=== PATIENT | male | born 1980 | race Hispanic/Latino ===

== ENCOUNTER 2025-05-18 07:18 | Emergency (ER) | payer BC, OTHER ==
[~2025-05-18] VITALS: Ht 172.7 cm; Wt 115.7 kg
[~2025-05-18 07:18] MED LIST: LEVO-70 PO; METR-172 PO
[2025-05-18 07:48] LABS: IMMATURE GRANULOCYTE ABSOLUTE 0.06 K/uL (0-1); NUCLEATED RED BLOOD CELLS 0.0 % (0.0-0.19); PLATELET COUNT (AUTO) 249 K/uL (130-400); RED BLOOD CELL COUNT(AUTO) 5.56 MIL/uL (4.50-6.20); RED CELL DISTRIBUTION WIDTH 13.0 % (11.0-15.5); WHITE BLOOD COUNT (AUTO) 10.6 K/uL (4.8-10.8)
[2025-05-18] MEDS: 0.9%NACL 1000ML 1,000 ML IV ONE (08:16)
[2025-05-18 08:22] LABS: ASPARTATE AMINOTRANSFERASE 17.0 U/L (10-37); CREATININE 1.0 mg/dL (0.5-1.3); GLOMERULAR FILTR. RATE CALC 96.0 mL/min (>90); GLUCOSE,RANDOM 117.0 mg/dL (70-105); SODIUM SERUM 140.0 mmol/L (136-145); TOTAL PROTEIN, SERUM 8.0 g/dL (6.0-8.3); UREA NITROGEN, BLOOD 11.0 mg/dL (7-18)
--- NOTE | 2025-05-18 10:52 | ERN ---
ED Note History of Present Illness Stated Complaint: LLQ PAIN Chief Complaint: Abdominal Pain Time Seen by MD: 07:42 Dictation: 44-year-old male presenting to the emergency department for left lower quadrant pain, patient reports pain over the past few days and had colonoscopy yesterday in the outpatient setting. Patient denies any chest pain, fever or bleeding Allergies: Coded Allergies: No Known Drug Allergies (Verified Allergy, Unknown, 04/16/18) Home Meds Active Scripts Metronidazole (Metronidazole) 500 Mg Tablet, 1 TAB PO TID for 7 Days, #21 TAB 0 Refills Prov:FREYA GONZALEZ [facility] 04/01/25 Levofloxacin (Levofloxacin) 500 Mg Tablet, 1 TAB PO DAILY for 7 Days, #7 TAB 0 Refills Prov:FREYA GONZALEZ [facility] 04/01/25 Past Medical History Past Medical History: Diverticulitis Surgical History: None Review of System Dictation Constitutional: Negative for fever,chills, and weight loss Eyes: Negative for injury, pain,redness, and discharge ENT: Negative for injury,pain or swelling Cardiovascular: Negative for chest pain, palpitations, and edema Respiratory: Negative for shortness of breath, cough, and wheezing, Abdomen/GI: Per HPI : Negative for injury, bleeding and discharge MS/Extremity: Negative for injury and deformity Skin: Negative for rash, and discoloration Neuro: Negative for headache, weakness, numbness, tingling, and seizure Psych: Negative for suicide ideation, homicidal ideation, and hallucinations Initial Vital Sign VS Vital Signs Date Time Temp Pulse Resp B/P (MAP) Pulse Ox O2 Delivery O2 Flow Rate FiO2 05/18/25 07:19 98.1 94 18 144/100 100 Room Air 05/18/25 08:19 0 21 Physical Exam Dictation General: awake, alert, NAD Head/Face: Normocephalic, atraumatic Eyes: PERRL, EOMI, vision at baseline ENT: oral cavity clear, TMs clear, no signs of infection Neck: Trachea midline, supple, no nuchal rigidity Cardiovascular: RRR, normal S1/S2, No MRGs, no JVD Respiratory: CTAB, no respiratory distress, No rales or wheezes Abdomen: Soft, left lower quadrant tenderness to palpation non-distended, normal bowel sounds, no guarding or rebound. Skin: Warm, dry, normal turgor, no rash MS/Extremity: Pulses equal, no cyanosis, neurovascular intact, FROM Neuro: COAx4, GCS 15, strength 5/5, CN 2-12 intact, normal cerebellar exam, normal gait, Psych: Normal behavior, mood, and affect normal Results (Laboratory/Radiology) Laboratory/Radiology Laboratory Tests Test 05/18/25 07:39 White Blood Count 10.6 K/uL (4.8-10.8) Red Blood Count 5.56 MIL/uL (4.50-6.20) Hemoglobin 17.6 g/dL (14.0-18.0) Hematocrit 49.9 % (42-54) Mean Corpuscular Volume 89.7 fL (79-99) Mean Corpuscular Hemoglobin 31.7 pg (27.0-33.0) Mean Corpuscular Hemoglobin Concent 35.3 g/dL (32.0-36.0) Red Cell Distribution Width 13.0 % (11.0-15.5) Platelet Count 249 K/uL (130-400) Mean Platelet Volume 10.1 fL (7.5-10.5) Immature Granulocyte % (Auto) 0.6 % (0-1) Neutrophils (%) (Auto) 72.0 % (40.0-77.0) Lymphocytes (%) (Auto) 19.7 % (21.0-51.0) L Monocytes (%) (Auto) 6.6 % (3.0-13.0) Eosinophils (%) (Auto) 0.7 % (0.0-8.0) Basophils (%) (Auto) 0.4 % (0.0-5.0) Neutrophils # (Auto) 7.6 K/uL (1.8-7.7) Lymphocytes # (Auto) 2.1 K/uL (1.0-4.8) Monocytes # (Auto) 0.7 K/uL (0.1-1.0) Eosinophils # (Auto) 0.07 K/uL (0.00-0.70) Basophils # (Auto) 0.04 K/uL (0.00-0.20) Absolute Immature Granulocyte (auto 0.06 K/uL (0-1) Nucleated Red Blood Cells 0.0 % (0.0-0.19) Sodium Level 140 mmol/L (136-145) Potassium Level 3.9 mmol/L (3.5-5.1) Chloride Level 105 mmol/L (101-111) Carbon Dioxide Level 28 mmol/L (21-32) Blood Urea Nitrogen 11 mg/dL (7-18) Creatinine 1.0 mg/dL (0.5-1.3) Glomerular Filtration Rate Calc 96 mL/min (>90) Random Glucose 117 mg/dL (70-105) H Total Calcium 9.0 mg/dL (8.5-10.1) Total Bilirubin 1.0 mg/dL (0.2-1.0) Direct Bilirubin 0.2 mg/dL (0.0-0.3) Aspartate Amino Transf (AST/SGOT) 17 U/L (10-37) Alanine Aminotransferase (ALT/SGPT) 54 U/L (12-78) Alkaline Phosphatase 76 U/L (50-136) Total Protein 8.0 g/dL (6.0-8.3) Albumin 4.0 g/dL (3.5-5.0) Lipase 33 U/L (16-77) Labs Reviewed?: Yes ED Course ED Course Orders Procedure Category Date Status Time Cbc With Differential LAB 05/18/25 Complete 07:43 Basic Metabolic Panel LAB 05/18/25 Complete 07:43 Hepatic Function Panel LAB 05/18/25 Complete 07:43 Lipase LAB 05/18/25 Complete 07:43 Urinalysis Profile LAB 05/18/25 Logged 07:43 Ct Abd/Pel Wo Con CT 05/18/25 Resulted Renal/Appy 07:58 Ketorolac PHA 05/18/25 Complete Tromethamine 15mg/Ml 07:58 Ondansetron 4mg Inj PHA 05/18/25 Complete (Zofran 4mg Inj) 07:58 0.9%Nacl 1000ml (Ns PHA 05/18/25 Complete 1000ml) 08:00 Ceftriaxone 1g Vial PHA 05/18/25 Transmitted (Rocephine 1g Inj) 11:29 Current Medications Medications (Trade) Dose Ordered Sig/Baldemar Route PRN Reason Start Time Stop Time Status Last Admin Dose Admin Ketorolac Tromethamine (toRADol) 15 mg ONCE STAT IV 05/18/25 07:58 05/18/25 08:01 DC 05/18/25 08:16 Ondansetron HCl (zoFRAN 4MG INJ) 4 mg ONCE STAT IVP 05/18/25 07:58 05/18/25 08:01 DC 05/18/25 08:16 Sodium Chloride 1,000 ml @ 0 mls/hr ONCE ONCE IV 05/18/25 08:00 05/18/25 08:01 DC 05/18/25 08:16 Vital Signs Date Time Temp Pulse Resp B/P (MAP) Pulse Ox O2 Delivery O2 Flow Rate FiO2 05/18/25 11:19 98.1 70 18 120/76 100 Room Air* 0 21 05/18/25 09:15 98.1 70 18 129/74 100 Room Air* 0 21 05/18/25 08:19 98.1 72 18 120/74 100 Room Air* 0 21 05/18/25 07:19 98.1 94 18 144/100 100 Room Air Medical Decision Making MDM MDM: Differential diagnosis: Rationale: Tests considered and ordered secondary to shared decision making include: Previous outside records reviewed: Old ER visits. Risk of complication and/or morbidity or mortality of patient management: None Medications-Per medication reconciliation Need for hospitalization: Patient does not meet criteria for hospitalization. Need for emergency major/minor surgery: No There are no social concerns with this patient. Prescription drug management Prescriptions will include symptomatic care Patient's prior external medical records from other ER visits were reviewed by me as indicated. Prior testing and results from previous visits were reviewed. Prior tests were taken into account with medical decision making and resource utilization, independent historian/historians were used to obtain complete medical history. I independently interpreted the test that were performed, results were reviewed by me and considered findings on radiology if ordered. Medical management and examination interpretation discussions were had by me w ith other qualified healthcare professionals as indicated for the patient's care. 44-year-old male with acute diverticulitis no white count no fever stable exam prescriptions given stable for outpatient therapy. DX & DISP Disposition: Discharge Departure Impression: Primary Impression: Diverticulitis Condition: Stable Scripts Metronidazole (Metronidazole) 250 Mg Tablet 1 TAB PO TID for 7 Days, #21 TAB 0 Refills Prov: RAFA DE LA CRUZ MD 05/18/25 Ciprofloxacin HCl (Cipro) 500 Mg Tablet 1 TAB PO BID for 7 Days, #14 TAB 0 Refills Prov: RAFA DE LA CRUZ MD 05/18/25 Ondansetron (Ondansetron Odt) 4 Mg Tab.rapdis 4 MG PO BID for vomiting for 5 Days, #10 TAB Prov: RAFA DE LA CRUZ MD 05/18/25 Referrals: SELF,REFERRAL (PCP) RAFA DE LA CRUZ MD May 18, 2025 10:52
--- NOTE | 2025-05-18 10:57 | HMCIMG ---
EXAM: CT Abdomen and Pelvis without IV contrast CLINICAL HISTORY: Left lower quadrant pain. TECHNIQUE: Thin collimated axial CT images of the abdomen and pelvis were obtained with sagittal and coronal reformatted images also submitted. CT scan is done according to ALARA (As Low As Reasonably Achievable). CONTRAST: None. COMPARISON: 03/30/25. FINDINGS: Unremarkable visualized lung parenchyma. No focal abnormality within the gallbladder, pancreas, spleen, adrenals, or kidneys. Diffuse fatty infiltration of the liver. Colonic diverticulosis with acute diverticulitis in the proximal sigmoid colon. Bowel loops are normal in caliber without evidence of obstruction or ileus. No bowel obstruction. Normal appendix. There is no abnormality within the urinary bladder. Unremarkable reproductive organs. No lymphadenopathy. No free fluid. There is no acute osseous abnormality. IMPRESSIONS: Acute diverticulitis in the proximal sigmoid colon. No free air, free fluid or fluid collection. No significant interval change. No bowel obstruction. Normal appendix. No urinary calculi. No hydronephrosis. Fatty liver. /[place]
[2025-05-18] MEDS ORDERED: CIPR-278 PO (11:33)
[2025-05-18] MEDS ORDERED: ONDA-243 PO (11:33)
[2025-05-18] MEDS ORDERED: METR-361 PO (11:33)
[2025-05-18 11:42] LABS: APPEARANCE,URINE CLEAR (CLEAR); GLUCOSE, URINE (UA) NEGATIVE (NEGATIVE); LEUKOCYTE ESTERASE ,URINE NEGATIVE Leu/uL (NEGATIVE); NITRATE,URINE NEGATIVE (NEGATIVE); OCCULT BLOOD,URINE NEGATIVE (NEGATIVE)
[2025-05-18 11:43] LABS: ADD UA MICROSCOPIC NO
[2025-05-18 11:49] VITALS: BP 121/72; PULSE 72; RESP 18; TEMP 98.1; O2SAT 100
== END 2025-05-18 12:12 | disposition home or self-care (01) ==
LOC: EDH 07:18
DX: K57.32 Diverticulitis of large intestine without perforation or abscess without bleeding (principal)
CPT/HCPCS: 99284; 74176; 96365; 96375; 96361; 80076; 80048; 83690; 85025; 81003; 36415; J1885; J7030; J0696; J2405